=== PATIENT | female | born 1995 | race Hispanic/Latino ===

== ENCOUNTER 2018-01-31 18:16 | Emergency (ER) | payer OTHER | END 2018-01-31 19:33 | disposition home or self-care (01) | LOC: ERS 18:16 | DX: O99.513 Diseases of the respiratory system complicating pregnancy, third trimester (principal); J31.0 Chronic rhinitis; Z3A.35 35 weeks gestation of pregnancy | CPT/HCPCS: 99283 ==

== ENCOUNTER 2020-04-19 10:44 | Emergency (ER) | payer OTHER, SELFPAY | END 2020-04-19 11:56 | disposition home or self-care (01) | LOC: ERS 10:44 | DX: S61.210A Laceration without foreign body of right index finger without damage to nail, initial encounter (principal); Z23 Encounter for immunization; W25.XXXA Contact with sharp glass, initial encounter | CPT/HCPCS: 90471 ==

== ENCOUNTER 2022-11-13 03:24 | Emergency (ER) | payer OTHER, SELFPAY ==
[2022-11-13] MEDS ORDERED: Boostrix 0.5 ML (Tdap) VIAL (>/=7 yrs of age) ONE (04:25)
== END 2022-11-13 07:21 | disposition home or self-care (01) ==
LOC: ERS 03:24
DX: O9A.211 Injury, poisoning and certain other consequences of external causes complicating pregnancy, first trimester (principal); Y04.0XXA Assault by unarmed brawl or fight, initial encounter; Z3A.10 10 weeks gestation of pregnancy; Z23 Encounter for immunization
CPT/HCPCS: 12011; 70450; 72125; 90471; 90715